=== PATIENT | male | born 1990 | race Caucasian/White ===

== ENCOUNTER 2017-12-19 18:14 | Emergency (ER) | payer OTHER ==
[2017-12-19 18:20] VITALS: BP 138/78; PULSE 79; RESP 18; TEMP 97.4
--- NOTE | 2017-12-19 18:59 | XR ---
EXAMINATION TYPE: XR forearm LT DATE OF EXAM: 12/19/2017 COMPARISON: NONE HISTORY: Pain TECHNIQUE: 2 view left forearm FINDINGS: No acute fractures are evident. Soft tissues are normal. Joint spaces appear unremarkable. IMPRESSION: 1. Normal 2 view left forearm.
--- NOTE | 2017-12-19 19:00 | XR ---
EXAMINATION TYPE: XR hand complete LT DATE OF EXAM: 12/19/2017 COMPARISON: NONE HISTORY: Pain worsening TECHNIQUE: Three-view left hand FINDINGS: No acute fractures are evident. Soft tissues are normal. Joint spaces are preserved. IMPRESSION: 1. Normal three-view left hand
--- NOTE | 2017-12-19 19:22 | ED ---
General Adult HPI - General Chief complaint: Extremity Injury, Upper Stated complaint: lt arm pain Time Seen by Provider: 12/19/17 18:30 Source: patient, RN notes reviewed Mode of arrival: ambulatory Limitations: no limitations - History of Present Illness Initial comments: 27-year-old male presents to the emergency department for a chief complaint of pain in the left hand. Patient states this has been going on for 5 weeks. Patient states he feels that along the metacarpal of the thumb as well as on the lateral aspect of the forearm. Patient states some days it is better and some days it is worse. Patient denies any pain anywhere else in the hand. Patient states he has not tried any [id number] medications for this. Patient has not followed up with primary care provider either. Patient denies any other symptoms at this time including shortness of breath or chest pain. - Related Data Home Medications Medication Instructions Recorded Confirmed Acetaminophen with Codeine 1 each PO Q4H 11/03/14 11/03/14 [Tylenol w/codeine #3] Amoxicillin 500 mg PO Q12HR 11/03/14 11/03/14 Previous Rx's Medication Instructions Recorded methylPREDNISolone Dose Pack 4 mg PO DIRECTED #21 package 12/19/17 [Medrol Dose Pack] Allergies Allergy/AdvReac Type Severity Reaction Status Date / Time No Known Allergies Allergy Verified 12/19/17 18:20 Review of Systems ROS Statement: Those systems with pertinent positive or pertinent negative responses have been documented in the HPI. ROS Other: All systems not noted in ROS Statement are negative. Past Medical History Past Medical History: No Reported History History of Any Multi-Drug Resistant Organisms: None Reported Past Surgical History: Appendectomy Additional Past Surgical History / Comment(s): wisdom teeth Past Psychological History: No Psychological Hx Reported Smoking Status: Current every day smoker Past Alcohol Use History: Rare Past Drug Use History: None Reported General Exam Limitations: no limitations Respiratory exam: Present: normal lung sounds bilaterally. Absent: respiratory distress, wheezes, rales, rhonchi, stridor Cardiovascular Exam: Present: regular rate, normal rhythm, normal heart sounds. Absent: systolic murmur, diastolic murmur, rubs, gallop, clicks Extremities exam: Present: other (Patient has tenderness to the distal lateral radius on the left. Patient also has tenderness in the thumb. Positive Quentin test. Otherwise patient has full range of motion. Capillary refill less than 2 seconds. Radial pulse 2+. Sensation is intact.) Course Vital Signs 12/19/17 18:18 Temperature 97.4 F L Pulse Rate 79 Respiratory 18 Rate Blood Pressure 138/78 O2 Sat by Pulse 100 Oximetry Medical Decision Making - Medical Decision Making 27-year-old male presents to the emergency room for a chief complaint of left thumb pain. Patient's complains of left thumb pain and left distal radius pain worsened with Quentin maneuver suggestive of tenosynovitis. X-rays of the left hand and forearm were negative. Patient will take Motrin and a steroid Dosepak. He will use warm compresses. He is to follow up with primary care provider in one to 2 days. He was also given the number of an orthopedic doctor that he can follow up with for this complaint. If symptoms worsen or he begins to lose feeling in his left hand he can return to the emergency department. Disposition Clinical Impression: Tenosynovitis Disposition: HOME SELF-CARE Condition: Good Instructions: De Quervain Disease (ED) Additional Instructions: Please return to the emergency department if symptoms worsen. Otherwise follow- up with orthopedics. Use warm compresses and Motrin for pain relief. Take Medrol Dosepak as directed. Prescriptions: methylPREDNISolone Dose Pack [Medrol Dose Pack] 4 mg PO DIRECTED #21 package Referrals: None,Stated [Primary Care Provider] - 1-2 days Aditya Barcenas DO [Doctor of Osteopathic Medicine] - 1-2 days Time of Disposition: 19:20
== END 2017-12-19 19:29 | disposition home or self-care (01) ==
LOC: EC 18:14
DX: M65.842 Other synovitis and tenosynovitis, left hand (principal); F17.200 Nicotine dependence, unspecified, uncomplicated; Z79.899 Other long term (current) drug therapy
CPT/HCPCS: 99283

== ENCOUNTER 2019-07-02 14:09 | Inpatient (IN) | payer MEDICAID, OTHER ==
[2019-07-02 14:23] VITALS: RESP 16; TEMP 97
--- NOTE | 2019-07-02 14:56 | ED ---
General Adult HPI - General Chief complaint: Psychiatric Symptoms Stated complaint: Mental Health Time Seen by Provider: 07/02/19 14:15 Source: police, RN notes reviewed Limitations: no limitations - History of Present Illness Initial comments: This is a 28-year-old male who presents emergency Department with the police. Police were called to the house because the patient was holding a gun to his head and telling his father he was going to kill himself. Patient denies this to me currently but the father and mother both told the [place] police officer this occurred. Father wrestled the patient to the ground and took away the gun. Patient states his girlfriend just broke up with him and took his kids and so is super depressed today and upset. Patient states she was not suicidal and he has never made any other suicidal attempts in the past and he states he has no psychiatric history. Patient states he has no physical complaints today at all. - Related Data Home Medications Medication Instructions Recorded Confirmed No Known Home Medications 07/02/19 07/02/19 Allergies Allergy/AdvReac Type Severity Reaction Status Date / Time No Known Allergies Allergy Verified 07/02/19 14:55 Review of Systems ROS Statement: Those systems with pertinent positive or pertinent negative responses have been documented in the HPI. ROS Other: All systems not noted in ROS Statement are negative. Past Medical History Past Medical History: No Reported History History of Any Multi-Drug Resistant Organisms: None Reported Past Surgical History: Appendectomy Additional Past Surgical History / Comment(s): wisdom teeth Past Psychological History: No Psychological Hx Reported Smoking Status: Current every day smoker Past Alcohol Use History: Rare Past Drug Use History: None Reported General Exam - General Exam Comments Initial Comments: GENERAL: Patient is well-developed and well-nourished. Patient is nontoxic and well- hydrated and is in no acute distress. ENT: Neck is soft and supple. No significant lymphadenopathy is noted. Oropharynx is clear. Moist mucous membranes. Neck has full range of motion without eliciting any pain. EYES: The sclera were anicteric and conjunctiva were pink and moist. Extraocular movements were intact and pupils were equal round and reactive to light. Eyelids were unremarkable. PULMONARY: Unlabored respirations. Good breath sounds bilaterally. No audible rales rhonchi or wheezing was noted. CARDIOVASCULAR: There is a regular rate and rhythm without any murmurs gallops or rubs. ABDOMEN: Soft and nontender with normal bowel sounds. No palpable organomegaly was noted. There is no palpable pulsatile mass. SKIN: Skin is clear with no lesions or rashes and otherwise unremarkable. NEUROLOGIC: Patient is alert and oriented x3. Cranial nerves II through XII are grossly intact. Motor and sensory are also intact. Normal speech, volume and content. Symmetrical smile. MUSCULOSKELETAL: Normal extremities with adequate strength and full range of motion. No lower extremity swelling or edema. No calf tenderness. LYMPHATICS: No significant lymphadenopathy is noted PSYCHIATRIC: Patient is very angry and denying suicide at this time. Limitations: no limitations Course Vital Signs 07/02/19 14:14 Temperature 97 F L Pulse Rate 80 Respiratory 16 Rate Blood Pressure 141/71 O2 Sat by Pulse 100 Oximetry Medical Decision Making - Medical Decision Making I filled out a clinical certification on this patient for admission. Disposition Clinical Impression: Suicidal ideation Disposition: ADMITTED IP TO THIS HOSP Referrals: None,Stated [Primary Care Provider] - 1-2 days Time of Disposition: 16:21
[2019-07-02] MEDS ORDERED: HALOPERIDOL LACTATE 5 MG/ML 1 ML VIAL IM STA (16:18)
[2019-07-02] MEDS ORDERED: NICOTINE 21MG/24HR PATCH TRANSDERM STA (16:28)
[2019-07-02] MEDS ORDERED: LORazepam 2 MG/ML INJ IM STA (16:35)
[2019-07-02] MEDS: LORazepam 2 MG/ML INJ IM STA ×2 (16:49→19:25)
--- NOTE | 2019-07-02 16:59 | ED ---
Disposition Clinical Impression: Suicidal ideation Disposition: ADMITTED IP TO THIS [facility] Referrals: None,Stated [Primary Care Provider] - 1-2 days Procedures - Restraint - Face to Face Restraint Occurrence 1 Patient's Immediate Situation: Endangers others' safety, Endangers staff safety, Violent behavior Patient's Reaction to the Intervention: Uncooperative, Angry, Hostile, Wayne gerent, Bizarre, Aggressive, Combative Patient's Medical & Behavioral Condition: Awake, Alert, Agitated, Manic, Flight of ideas, Bizarre behavior Need to Continue or Terminate Restraint or Seclusion: Continue Face to Face Eval of Restraint Date: 07/02/19 Face to Face Eval of Restraint Time: 16:58
[2019-07-02 18:39] VITALS: BP 84/52; PULSE 65
[2019-07-02] MEDS ORDERED: MAGNESIUM HYDROXIDE 2,400 MG/10 ML CUP PO PRN (19:37)
[2019-07-02] MEDS ORDERED: ACETAMINOPHEN TAB 325 MG TAB PO PRN (19:37)
[2019-07-02] MEDS ORDERED: MAG HYDROX/AL HYDROX/SIMETH 30 ML CUP PO PRN (19:37)
[2019-07-02] MEDS ORDERED: HALOPERIDOL LACTATE 5 MG/ML 1 ML VIAL IM PRN (19:49)
[2019-07-02] MEDS ORDERED: LORazepam 2 MG/ML INJ IV PRN (19:50)
[2019-07-03] MEDS: NICOTINE 21MG/24HR PATCH TRANSDERM SCH (09:51)
[2019-07-03] MEDS ORDERED: LORazepam 2 MG/ML INJ IM PRN (09:55)
[2019-07-03 10:27] LABS: Basophils % (A) 0 %; Eosinophils % (A) 0 %; HCT 49.1 % (39.0-53.0); HGB 15.6 gm/dL (13.0-17.5); Lymphocytes # (A) 1.2 k/uL (1.0-4.8); Lymphocytes % (A) 11 %; MCH 30.6 pg (25.0-35.0); MCHC 31.8 g/dL (31.0-37.0); MCV 96.3 fL (80.0-100.0); Mean Platelet Volume 6.2; Monocytes # (A) 0.4 k/uL (0-1.0); Monocytes % (A) 4 %; Neutrophils # (A) 9.4 k/uL (1.3-7.7); Neutrophils % (A) 84 %; Platelet Count 228 k/uL (150-450); WBC 11.1 k/uL (3.8-10.6)
[2019-07-03 10:35] LABS: ALT 23 U/L (21-72); AST 27 U/L (17-59); African American GFR (CKD) >90 (>60 ml/min/1.73 sqM); Albumin 4.8 g/dL (3.5-5.0); Alkaline Phosphatase 59 U/L (38-126); Anion Gap 10 mmol/L; Blood Urea Nitrogen 16 mg/dL (9-20); Calcium 9.6 mg/dL (8.4-10.2); Carbon Dioxide 28 mmol/L (22-30); Chloride 104 mmol/L (98-107); Cholesterol 171 mg/dL (<200); Glucose 83 mg/dL (74-99); HDL Cholesterol 51 mg/dL (40-60); LDL Cholesterol,Calculated 108 mg/dL (0-99); Potassium 4.6 mmol/L (3.5-5.1); Sodium 142 mmol/L (137-145); Total Bilirubin 2.8 mg/dL (0.2-1.3); Total Protein 8.2 g/dL (6.3-8.2); Triglycerides 58 mg/dL (<150)
--- NOTE | 2019-07-03 11:22 | P.CONS ---
History of Present Illness - Reason for Consult Consult date: 07/03/19 - History of Present Illness The patient is a 28 yo M with no known PMH who presented to the ED under police custody for suicidal ideation. As per the documentation, the patient had recently broken up with his girlfriend who had also taken away his kids, and the patient was at his parent's home with a gun to his head, threatening to kill himself. Patient was subsequently petitioned and admitted to the psych unit. The patient was seen in the mental health unit. The patient states that he should not be in the mental health unit and that was all a schema by his family members. He however denied any active complaints. He reports that he does not take any [id number] medications. Denied chest pain, shortness breath, nausea, vomiting, fever, chills, abdominal pain, or diarrhea. The patient underwent an extensive evaluation in the emergency room with WBC count 11.1, hemoglobin 15.6, platelets are 28, sodium 142, potassium 4.6, chloride 104, BUN 16, and creatinine 0.95. TSH was low at 0.252. Review of Systems Pertinent positives and negatives as discussed in HPI, a complete review of systems was performed and all other systems are negative. Past Medical History Past Medical History: No Reported History History of Any Multi-Drug Resistant Organisms: None Reported Past Surgical History: Appendectomy Additional Past Surgical History / Comment(s): wisdom teeth Past Psychological History: No Psychological Hx Reported Smoking Status: Current every day smoker Past Alcohol Use History: Rare Past Drug Use History: None Reported Medications and Allergies Home Medications Medication Instructions Recorded Confirmed Type No Known Home Medications 07/02/19 07/02/19 History Allergies Allergy/AdvReac Type Severity Reaction Status Date / Time No Known Allergies Allergy Verified 07/02/19 14:55 Physical Exam Vitals: Vital Signs Temp Pulse Pulse Resp BP BP Pulse Ox 07/02/19 18:38 65 16 84/52 07/02/19 18:30 18 07/02/19 16:45 17 07/02/19 14:14 97 F L 80 16 141/71 100 General: non toxic, no distress, appears at stated age, normal weight Derm: no unusual rashes/lesions no unusual ecchymoses, warm, dry Head: atraumatic, normocephalic, symmetric Eyes: EOMI, no lid lag, anicteric sclera, pupils equal round reactive to light ENT: Nose and ears atraumatic, no thrush, no pharyngeal erythema Neck: No thyromegaly, no cervical lymphadenopathy, trachea midline, supple Mouth: no lip lesion, mucus membranes moist Cardiovascular: S1S2 reg, no murmur, positive posterior tibial pulse bilateral, no edema, capillary refill less than 2 seconds Lungs: CTA bilateral, no rhonchi, no rales , no accessory muscle use Abdominal: soft, nontender to palpation, no guarding, no appreciable organ omegaly, normal bowel sounds Ext: no gross muscle atrophy, muscle strength 5 out of 5 in all 4 extremities grossly, no contractures, Neuro: CN II-XI grossly intact, light touch intact all 4 extremities, finger to nose within normal limits, Psych: Alert, oriented, flat affect Results CBC & Chem 7: 07/03/19 10:03 07/03/19 10:03 Labs: Abnormal Lab Results - Last 24 Hours (Table) 07/03/19 07/03/19 Range/Units 10:03 10:03 WBC 11.1 H (3.8-10.6) k/uL Neutrophils # 9.4 H (1.3-7.7) k/uL Total Bilirubin 2.8 H (0.2-1.3) mg/dL LDL Cholesterol, Calc 108 H (0-99) mg/dL TSH 0.252 L (0.465-4.680) mIU/L Assessment and Plan Plan: Low TSH -Obtain free T4 and T3 Tobacco abuse -Patient smokes approximately one pack per day -Advised on importance of cessation -Nicotine patch as needed Leukocytosis -No signs of active infection at this time -Likely reactive secondary stress -Monitor for now -CBC in a.m. Elevated total bilirubin -Patient reports drinking rarely -Obtain liver ultrasound -Monitor for now Suicidal ideation -As per psychiatry Thank you for allowing us to participate in the care of this patient. We will follow peripherally. Do not hesitate to contact us with questions. Someone can be reached from the [facility] hospitalist group at all hours of the day at [phone].
--- NOTE | 2019-07-03 14:18 | P.HP ---
Psychiatric H&P - . H&P Date: 07/03/19 History & Physical: IDENTIFYING INFORMATION: Paulie Vance is a 28-year-old single male, has a job in [employer], denies any history of psychiatric illness, and he denies any history of medical problems. The patient has been admitted to our inpatient psychiatric services after been transferred from [facility] emergency room. Patient was initially EMS and the police after his father petitioned him as per report the patient tried to kill himself. The patient has been admitted on involuntarily basis to our service. CHIEF COMPLAINT: "I didn't try to kill myself." HISTORY OF PRESENT ILLNESS: As per emergency room report, the patient presented to ER under police custody because of suicidal ideation. Reportedly, the patient recently broke up with his girlfriend who had also taken away his kids, and the patient was at his parent's home was a gun to his head threatening to kill himself. Patient was subsequently petitioned and admitted to the psychiatric unit. As per petition papers by a mounted police, the patient admitted to getting at his gun and admitted suicidal thoughts initially but later denied it. Paulie's father called 911 reported that Paulie has grabbed pistol, held it up to his head and his stated" I am going to end it all." Based on psychiatric evaluation today, the patient presents very superficial w ith very evasive answers about the incidence of holding the gun to his head. Patient minimizes the incident and reports that he was just transferring his guns out of the safe because a safe was very heavy and he tried to get the guns out of the safe because he was moving out so his parents thought that was going to kill himself. Even the patient mentioned he broke up with his girlfriend, and she doesn't allow him to see the children, however; he didn't explain the nature of the conflict with his girlfriend and he was accusing his parent's being liars and using drugs. He couldn't explain why his parent's would report that he tried to kill himself and was putting the gun to his head and again he was superficial and he denies this incident of holding the gun against his head and threatening suicide. Patient denies feeling hopeless, worthless, or suicidal. He was very frustrated about being hospitalized, and requested to go back to his work. Patient denies any current suicidal or homicidal thoughts. He denies feeling guilty, lack of motivation, or poor energy level. He denies sleep or appetite disturbances. Patient denies symptoms of anxiety including racing thoughts, always worried, always feeling tense and not easy to relax. He denies any panic attacks, and he denies PTSD symptoms including nightmares or flashbacks. Patient denies any current or previous manic episodes including symptoms of a euphoric/irritable mood, unusual level of energy, lack need to sleep due to increased activities, and irrational/impulsive behavior. He denies any current or previous auditory or visual hallucinations. He denies any paranoid ideation and no delusions could be elicited. He denies any current or previous history of self-injurious behavior, severe mood swings, outbursts of severe anger or agitation. PAST PSYCHIATRIC HISTORY: Previous diagnoses: Reports was diagnosed with depression 10 years ago after of his friend and he received some talk therapy which helped him. Previous psychiatric hospitalizations: Denies any previous psychiatric hospitalizations. Previous suicide attempts: As any previous suicidal attempts. Denies any current psychiatric medications, and he denies any previous trials of psychotropic medications. SUBSTANCE ABUSE HISTORY: Nicotine: 1 pack per day for more than 15 years. Alcohol: Denies drinking alcohol Cannabis: Reports smoking marijuana very infrequent. Denies any use of street drugs including cocaine, heroin, or methamphetamine. Denies any history of IV drug use. Denies any history of substance use disorder treatment. Social History: Patient was born in [facility] and raised up by both parents who have been since he was a child and they still . Housing: Patient was most recently living with his girlfriend who broke up with him 1 week ago. Reportedly, the patient was at his parent's house when he threatened to kill himself Work history: Patient reports working in [employer]. Education: Patient reports attaining an educational level of high school diploma and some college credits. Children: Patient reports having 2 children who are children for his girlfriend but he is very connected with them Legal history: Reports history of being arrested and he stayed in retirement due to fighting while he was at high school. History of psychological trauma: Denies any history of psychological trauma FAMILY HISTORY: Psychiatric Illness: Denies any family history of mental illness. Substance abuse: Denies any family history of addiction problems. Completed Suicides: Denies any family history of suicide. MENTAL STATUS EVALUATION: Appearance: Appears stated age, poorly groomed, average body built, and no specific features. Gait/ posture: Steady gait, normal arm swinging, no abnormal movements, with relaxed posture. Attitude and Behavior: Very superficial, evasive answers, intermittent eye contact during course of interview. Motor Activity: Increased psychomotor activity. Speech: spontaneous, normal rate, rhythm, and articulation. Average volume. Not pressured. Language: Articulating, naming objects and repeat phrases. Mood: Irritable, frustrated Affect: Constricted. Thought process: Linear, goal-directed. Association: Intact. Thought content: No delusions, denies suicidal thoughts, denies homicidal thoughts, denies intentions, or plans. Perception: And eyes any auditory or visual hallucinations. Alertness: No impairment. Concentration: Impaired Orientation: Alert and fully oriented to person, place, time and situation Insight regarding psychiatric condition: Limited Judgment regarding daily activities and social situation: Limited Impulse control: Limited Strengths: Stable general medical condition Employment Challenges: Poor coping skills. Limited social support. Allergies Allergy/AdvReac Type Severity Reaction Status Date / Time No Known Allergies Allergy Verified 07/02/19 14:55 Vital Signs Temp 97 F L 07/02/19 14:14 Pulse 65 07/02/19 18:38 Resp 16 07/02/19 18:38 BP 84/52 07/02/19 18:38 Pulse Ox 100 07/02/19 14:14 Intake & Output 07/02/19 07/03/19 07/03/19 18:59 06:59 18:59 Weight 81.647 kg Laboratory Last Values Review of Lab results: WBC 11.1 k/uL (3.8-10.6) H 07/03/19 10:03 RBC 5.10 m/uL (4.30-5.90) 07/03/19 10:03 Hgb 15.6 gm/dL (13.0-17.5) 07/03/19 10:03 Hct 49.1 % (39.0-53.0) 07/03/19 10:03 MCV 96.3 fL (80.0-100.0) 07/03/19 10:03 MCH 30.6 pg (25.0-35.0) 07/03/19 10:03 MCHC 31.8 g/dL (31.0-37.0) 07/03/19 10:03 RDW 13.0 % (11.5-15.5) 07/03/19 10:03 Plt Count 228 k/uL (150-450) 07/03/19 10:03 Neutrophils % 84 % 07/03/19 10:03 Lymphocytes % 11 % 07/03/19 10:03 Monocytes % 4 % 07/03/19 10:03 Eosinophils % 0 % 07/03/19 10:03 Basophils % 0 % 07/03/19 10:03 Neutrophils # 9.4 k/uL (1.3-7.7) H 07/03/19 10:03 Lymphocytes # 1.2 k/uL (1.0-4.8) 07/03/19 10:03 Monocytes # 0.4 k/uL (0-1.0) 07/03/19 10:03 Eosinophils # 0.0 k/uL (0-0.7) 07/03/19 10:03 Basophils # 0.0 k/uL (0-0.2) 07/03/19 10:03 Sodium 142 mmol/L (137-145) 07/03/19 10:03 Potassium 4.6 mmol/L (3.5-5.1) 07/03/19 10:03 Chloride 104 mmol/L (98-107) 07/03/19 10:03 Carbon Dioxide 28 mmol/L (22-30) 07/03/19 10:03 Anion Gap 10 mmol/L 07/03/19 10:03 BUN 16 mg/dL (9-20) 07/03/19 10:03 Creatinine 0.95 mg/dL (0.66-1.25) 07/03/19 10:03 Est GFR (CKD-EPI)AfAm >90 (>60 ml/min/1.73 sqM) 07/03/19 10:03 Est GFR (CKD-EPI)NonAf >90 (>60 ml/min/1.73 sqM) 07/03/19 10:03 Glucose 83 mg/dL (74-99) 07/03/19 10:03 Calcium 9.6 mg/dL (8.4-10.2) 07/03/19 10:03 Total Bilirubin 2.8 mg/dL (0.2-1.3) H 07/03/19 10:03 AST 27 U/L (17-59) 07/03/19 10:03 ALT 23 U/L (21-72) 07/03/19 10:03 Alkaline Phosphatase 59 U/L (38-126) 07/03/19 10:03 Total Protein 8.2 g/dL (6.3-8.2) 07/03/19 10:03 Albumin 4.8 g/dL (3.5-5.0) 07/03/19 10:03 Triglycerides 58 mg/dL (<150) 07/03/19 10:03 Cholesterol 171 mg/dL (<200) 07/03/19 10:03 LDL Cholesterol, Calc 108 mg/dL (0-99) H 07/03/19 10:03 HDL Cholesterol 51 mg/dL (40-60) 07/03/19 10:03 TSH 0.252 mIU/L (0.465-4.680) L 07/03/19 10:03 Assessment: Unspecified mood disorder Rule out major depressive disorder, single episode, without psychotic features. TREATMENT PLAN/RECOMMENDATIONS: Medical Decision making: The patient presented to the ER with police custody after he was petitioned because he was threatening to kill himself and putting a gun to his head. The patient at high risk to hurt himself if he is not in the inpatient setting. The patients psychiatric symptoms are not stable and he needs further management of psychiatric medications and further planning for discharge. Therefore, inpatient level of care is needed. Continue the patient inpatient for safety. Continue the patient under 15 minutes safe check for safety. Continue treatment of depression and mood instability symptoms. Psych education regarding his diagnosis, and treatment option. The patient will also be provided with individual therapy, group therapy, substance abuse counseling, gain insight, and coping skills. Consider medical consultation if any acute medical issue arise. Medications: Not on this time. Patient was superficial in discussing his incident of try to kill himself and didn't report any current symptoms of depression or other psychiatric illness. We will continue monitor the patient's symptoms and obtain collateral information from the patient's parents after his consent. Prognosis is fair, contingent on patient has been compliant with his treatment and has been followed up closely with outpatient mental health provider after discharge. The patient will be assessed on daily basis for his depression, suicidal ideation, and will be discharged back to his outpatient mental health provider upon stabilization. EXPECTED LENGTH OF STAY: 2- 3 days. 07/03/19 13:51
--- NOTE | 2019-07-04 09:02 | US ---
EXAMINATION TYPE: US liver DATE OF EXAM: 07/04/2019 COMPARISON: NONE CLINICAL HISTORY: Elevated T Bili. mental health patient with no symptoms EXAM MEASUREMENTS: Liver Length: 16.1 cm Gallbladder Wall: 0.2 cm CBD: 0.5 cm Right Kidney: 10.4 x 4.7 x 4.2 cm Pancreas: wnl Liver: wnl Gallbladder: wnl Evidence for sonographic Henderson's sign: no CBD: wnl Right Kidney: wnl IMPRESSION: Hepatic echotexture remains homogeneous. No sonographic evidence of cholelithiasis nor acute cholecys titis. If there is further concern for elevated bilirubin levels MRCP with and without contrast could evaluate the bile ducts for cholangitis or nonradiopaque choledocholithiasis.
[2019-07-04] MEDS: NICOTINE 21MG/24HR PATCH TRANSDERM SCH ×2 (09:06→09:09)
[2019-07-04 09:42] LABS: HCT 44.6 % (39.0-53.0); HGB 14.7 gm/dL (13.0-17.5); MCHC 32.9 g/dL (31.0-37.0); MCV 94.4 fL (80.0-100.0); Mean Platelet Volume 5.7; Platelet Count 222 k/uL (150-450); RBC 4.73 m/uL (4.30-5.90); RDW 12.7 % (11.5-15.5); WBC 7.4 k/uL (3.8-10.6)
[2019-07-04 09:51] LABS: Total Bilirubin 1.8 mg/dL (0.2-1.3)
[2019-07-04 10:01] LABS: T4, Free (Free Thyroxine) 1.04 ng/dL (0.78-2.19)
--- NOTE | 2019-07-04 14:11 | P.PN ---
Progress Note - Text Progress Note Date: 07/04/19 Chief complaint: "I am not suicidal, and I never was suicidal " Subjective: The patient has been seen today as follow-up, chart reviewed, case discussed with the treatment team. Patient slept about 8 hours last night. Patient has been going to selected groups and other unit activities. Patient reports good appetite. She reports feeling stable emotionally, and he denies feeling depressed, hopeless, or suicidal. Patient continued to reported that his parents misunderstood him when he tried to move the guns from the safe and the thought that he is going to kill himself but he never had any thoughts, intention, or plan to hurt himself. Patient was talking about going back to his girlfriend and she is happy that he could get back to her house and stay with the kids. He reports plan to go back to work and will continue outpatient counseling as needed. The patient denies any manic symptoms including sustained period of time with elevated or irritable mood, impulsive or irrational behavior, inflated self- esteem, or absence need to sleep due to increases goal-directed activities. The patient denies any auditory or visual hallucinations. Also the patient denies any paranoid ideation. Review of other systems: Patient denies any physical symptoms besides what has been mentioned above. No breathing problems, no chest pain reported today. Mental status examination; Appearance: The patient appears stated age, adequately groomed and dressed, no specific features. Gait/posture: Normal gait, Normal arm swinging: No abnormal movements. Attitude and behavior: engaged, cooperative, eye contact. Motor activity: Normal psychomotor activity Speech: Normal rate, tone. Mood: "Good" Affect: Constricted Thought form: goal-directed, linear, coherent. Thought content: Non-delusional, denies suicidal thoughts, denies homicidal thoughts, denies intentions or plans. Perception: Denies any auditory or visual hallucinations Attention: No impairment. Patient was able to repeat serial 5. Orientation: Patient patient was fully oriented to time place person and sit uation. Insight: Patient has fair insight about his psychiatric disorder. Judgment: Patient has fair judgment about his psychiatric treatment. Assessment: Unspecified mood disorder. Rule out major depressive disorder, single episode, moderate without psychotic features Plan: Continue inpatient level of care due to mood instability and arrange for safe discharge plan Obtain collateral information from patient's parents about the reported incident and requests to secure the guns or any other lethal weapons. provide psychiatric education regarding his diagnosis Precautions: Continue 15 minutes check for safety. Consider medical consultation if any acute medical issues arise. Provide the patient individual, group therapy, substance use disorder counseling to give better insight and learn coping skills. Continue follow-up with the patient daily to monitor progress of mood symptoms. Medications: None at this time. Patient refused start any medications, and he denies any symptoms of depression. Discharge patient to OUTPATIENT services upon a stabilization Prognosis: Improving Expected LOS: 1-2 days
[2019-07-05] MEDS: NICOTINE 21MG/24HR PATCH TRANSDERM SCH ×2 (08:41→08:52)
--- NOTE | 2019-07-05 12:29 | P.DS ---
Providers Date of admission: 07/02/19 18:03 Expected date of discharge: 07/05/19 Attending physician: Giovanni Carcamo MD Consults: 07/02/19 19:37 Consult Physician Routine Consulting Provider: Ian Boss Consult Reason/Comments: H&P for mental health admission Do you want consulting provider notified?: Yes Primary care physician: Stated None Hospital Course: Brief HPI: As per the HPI from initial psychiatric evaluation during this hospital stay: "Paulie Vance is a 28-year-old single male, has a job in [employer], denies any history of psychiatric illness, and he denies any history of medical problems. The patient has been admitted to our inpatient psychiatric services after been transferred from [facility] emergency room. Patient was initially EMS and the police after his father petitioned him as per report the patient tried to kill himself. The patient has been admitted on involuntarily basis to our service. As per emergency room report, the patient presented to ER under police custody because of suicidal ideation. Reportedly, the patient recently broke up with his girlfriend who had also taken away his kids, and the patient was at his parent's home was a gun to his head threatening to kill himself. Patient was subsequently petitioned and admitted to the psychiatric unit. As per petition papers by a sergeant of officers, the patient admitted to getting at his gun and admitted suicidal thoughts initially but later denied it. Paulie's father called 911 reported that Paulie has grabbed pistol, held it up to his head and his stated" I am going to end it all." Based on psychiatric evaluation today, the patient presents very superficial with very evasive answers about the incidence of holding the gun to his head. Patient minimizes the incident and reports that he was just transferring his guns out of the safe because a safe was very heavy and he tried to get the guns out of the safe because he was moving out so his parents thought that was going to kill himself. Even the patient mentioned he broke up with his girlfriend, and she doesn't allow him to see the children, however; he didn't explain the nature of the conflict with his girlfriend and he was accusing his parent's being liars and using drugs. He couldn't explain why his parent's would report that he tried to kill himself and was putting the gun to his head and again he was superficial and he denies this incident of holding the gun against his head and threatening suicide. Patient denies feeling hopeless, worthless, or suicidal. He was very frustrated about being hospitalized, and requested to go back to his work. Patient denies any current suicidal or homicidal thoughts. He denies feeling guilty, lack of motivation, or poor energy level. He denies sleep or appetite disturbances. Patient denies symptoms of anxiety including racing thoughts, always worried, always feeling tense and not easy to relax. He denies any panic attacks, and he denies PTSD symptoms including nightmares or flashbacks. Patient denies any current or previous manic episodes including symptoms of a euphoric/irritable mood, unusual level of energy, lack need to sleep due to increased activities, and irrational/impulsive behavior. He denies any current or previous auditory or visual hallucinations. He denies any paranoid ideation and no delusions could be elicited. He denies any current or previous history of self-injurious behavior, severe mood swings, outbursts of severe anger or agitation. " Hospital Course: Psychiatric: The patient was not initiated on psychotropic medication as he denies any current symptoms of depression and chooses not to start on any psychiatric medications. Patient is willing to continue therapy and counseling after discharge. The patient was admitted for a safe and supportive environment. A psychiatric, medical, and psychosocial evaluations were done on admission. The patient's hospital stay is unremarkable. Patient did not exhibit any aggression towards himself or others during his hospitalization, and there was no requirements for emergency medications or restraints. The patient attended some groups to obtain coping skills and process stress. Patient got along with his peers and with staff. The objective signs of depression and suicidal ideation not observed and multiple reported by the patient during his hospital stay. Patient denies any suicidal ideation, not made any hopelessness/helplessness statements for more than 3 days prior to discharge. Maximum hospitalization benefit was reached and subsequently discharge was planned, and patient is appropriate to continue treatment on an outpatient basis. On the day of discharge the patient was able to create an appropriate safety plan and denies any side effect of medications. At the day of discharge studio set up worker attended family meeting with patient's family, discussed discharge planning, and educated the family about securing guns at home. Family reported guns are secured. Medical: Patient was educated about smoking cessation and a prescription for nicotine replacement therapy was given at time of discharge. Assessment: Assessment at the day of discharge: The patient was seen at the day of discharge. Patient denies any sleep or appetite disturbances, denies feeling hopeless, worthless or helpless. Also, patient denies any other depressive or manic symptoms. Patient denies any psychotic symptoms. Patient denies suicidal or homicidal thoughts, intention or plans. Nurses and therapist reported patient is psychiatrically stable, and agreed to discharge plan. Mental status examination on discharge: Appearance: The patient appears stated age, adequately groomed and dressed, no specific features. Gait/posture: Normal gait, Normal arm swinging: No abnormal movements. Attitude and behavior: engaged, cooperative, eye contact. Motor activity: Normal psychomotor activity Speech: Normal rate, tone. Mood:" Good" Affect: Reactive, congruent with mood. Thought form: goal-directed, linear, coherent. Thought content: Non-delusional, denies suicidal thoughts, denies homicidal tho ughts, denies intentions or plans. Perception: Denies any auditory or visual hallucinations Attention: No impairment. Patient was able to repeat serial 5. Orientation: Patient patient was fully oriented to time place person and situation. Insight: Patient has fair insight about his psychiatric disorder. Judgment: Patient has fair judgment about his psychiatric treatment. Health Concerns: Activity: As tolerated Diet: Regular Special Instructions: Labs to be completed after discharge: As clinically indicated by his outpatient psychiatrist and PCP. Discharge checklist for suicide and violence to determine stability: Safety plan was discussed with the patient. Patient denies any current suicidal/ homicidal or violent ideation/plan/ intent. Patient has ability to address stress/emotions. Patient understands and is comfortable with discharge plan. [facility] Emergency number (911, crisis number) provided to the patient. Actions taken to make sure no weapons at home and to remove weapons if any at home. Avoid the use of street drugs and alcohol. Take all medications as prescribed. Please go to scheduled outpatient appointment for aftercare. If symptoms return or become worse call the crisis line at and/or go to the nearest emergency room for an evaluation. Pertinent Studies: Laboratory Tests Range/Units 07/03/19 07/03/19 07/03/19 10:03 10:03 10:03 WBC (3.8-10.6) k/uL 11.1 H RBC (4.30-5.90) m/uL 5.10 Hgb (13.0-17.5) gm/dL 15.6 Hct (39.0-53.0) % 49.1 MCV (80.0-100.0) fL 96.3 MCH (25.0-35.0) pg 30.6 MCHC (31.0-37.0) g/dL 31.8 RDW (11.5-15.5) % 13.0 Plt Count (150-450) k/uL 228 Neutrophils % % 84 Lymphocytes % % 11 Monocytes % % 4 Eosinophils % % 0 Basophils % % 0 Neutrophils # (1.3-7.7) k/uL 9.4 H Lymphocytes # (1.0-4.8) k/uL 1.2 Monocytes # (0-1.0) k/uL 0.4 Eosinophils # (0-0.7) k/uL 0.0 Basophils # (0-0.2) k/uL 0.0 Sodium (137-145) mmol/L 142 Potassium (3.5-5.1) mmol/L 4.6 Chloride (98-107) mmol/L 104 Carbon Dioxide (22-30) mmol/L 28 Anion Gap mmol/L 10 BUN (9-20) mg/dL 16 Creatinine (0.66-1.25) mg/dL 0.95 Est GFR (CKD-EPI)AfAm (>60 ml/min/1.73 sqM) >90 Est GFR (CKD-EPI)NonAf (>60 ml/min/1.73 sqM) >90 Glucose (74-99) mg/dL [address] Glu mg/dL 97 Hemoglobin A1c (4.0-6.0) % 5.0 Calcium (8.4-10.2) mg/dL 9.6 Total Bilirubin (0.2-1.3) mg/dL 2.8 H AST (17-59) U/L 27 ALT (21-72) U/L 23 Alkaline Phosphatase (38-126) U/L 59 Total Protein (6.3-8.2) g/dL 8.2 Albumin (3.5-5.0) g/dL 4.8 Triglycerides (<150) mg/dL 58 Cholesterol (<200) mg/dL 171 LDL Cholesterol, Calc (0-99) mg/dL 108 H HDL Cholesterol (40-60) mg/dL 51 TSH (0.465-4.680) mIU/L 0.252 L Free T4 (0.78-2.19) ng/dL Free T3 pg/mL (2.8-5.3) pg/ml Range/Units 07/04/19 07/04/19 09:05 09:05 WBC (3.8-10.6) k/uL 7.4 RBC (4.30-5.90) m/uL 4.73 Hgb (13.0-17.5) gm/dL 14.7 Hct (39.0-53.0) % 44.6 MCV (80.0-100.0) fL 94.4 MCH (25.0-35.0) pg 31.0 MCHC (31.0-37.0) g/dL 32.9 RDW (11.5-15.5) % 12.7 Plt Count (150-450) k/uL 222 Neutrophils % % Lymphocytes % % Monocytes % % Eosinophils % % Basophils % % Neutrophils # (1.3-7.7) k/uL Lymphocytes # (1.0-4.8) k/uL Monocytes # (0-1.0) k/uL Eosinophils # (0-0.7) k/uL Basophils # (0-0.2) k/uL Sodium (137-145) mmol/L Potassium (3.5-5.1) mmol/L Chloride (98-107) mmol/L Carbon Dioxide (22-30) mmol/L Anion Gap mmol/L BUN (9-20) mg/dL Creatinine (0.66-1.25) mg/dL Est GFR (CKD-EPI)AfAm (>60 ml/min/1.73 sqM) Est GFR (CKD-EPI)NonAf (>60 ml/min/1.73 sqM) Glucose (74-99) mg/dL Estimated Ave Glu mg/dL Hemoglobin A1c (4.0-6.0) % Calcium (8.4-10.2) mg/dL Total Bilirubin (0.2-1.3) mg/dL 1.8 H AST (17-59) U/L ALT (21-72) U/L Alkaline Phosphatase (38-126) U/L Total Protein (6.3-8.2) g/dL Albumin (3.5-5.0) g/dL Triglycerides (<150) mg/dL Cholesterol (<200) mg/dL LDL Cholesterol, Calc (0-99) mg/dL HDL Cholesterol (40-60) mg/dL TSH (0.465-4.680) mIU/L Free T4 (0.78-2.19) ng/dL 1.04 Free T3 pg/mL (2.8-5.3) pg/ml 2.9 Procedures: Discharge diagnoses: Unspecified mood disorder Plan: Patient will continue follow-up at-. As per discharge plan Patient Condition at Discharge: Stable Patient will be discharge to parent's house Plan - Discharge Summary New Discharge Prescriptions: New Nicotine 21Mg/24Hr Patch [Habitrol] 1 patch TRANSDERM DAILY #30 patch Discharge Medication List Nicotine 21Mg/24Hr Patch [Habitrol] 1 patch TRANSDERM DAILY #30 patch 07/05/19 [Rx] Follow up Appointment(s)/Referral(s): None,Stated [Primary Care Provider] - 1-2 days [facility] [NON-STAFF] - As Needed Patient Instructions/Handouts: Depression (DC), Suicide Prevention (DC) Activity/Diet/Wound Care/Special Instructions: Activity and diet as tolerated. No guns or weapons in the home. No alcohol or street drugs not prescribed by physician. Take all medications as prescribed, and attend all follow up appointments as scheduled. If in need of medication refills, please go to your outpatient psychiatric provider, or to your primary care physician. If in crisis, please call , or go to the nearest ER for an evaluation. Labs to be completed after discharge: As clinically indicated by his outpatient psychiatrist and PCP. Discharge checklist for suicide and violence to determine stability: Safety plan was discussed with the patient. Patient denies any current suicidal/ homicidal or violent ideation/plan/ intent. Patient has ability to address stress/emotions. Patient understands and is comfortable with discharge plan. Outpatient appointments is near [facility] Emergency number (911, crisis number) provided to the patient. Actions taken to make sure no weapons at home and to remove weapons if any at home Discharge Disposition: HOME SELF-CARE
== END 2019-07-05 15:06 | disposition home or self-care (01) | DRG 885 ==
LOC: EC 14:09 → 3MHU 18:03
PROVIDERS: ADMIT Psychiatry & Neurology Psychiatry; ATTEND Psychiatry & Neurology Psychiatry
DX: F39 Unspecified mood [affective] disorder (principal); R45.851 Suicidal ideations; F17.200 Nicotine dependence, unspecified, uncomplicated; D72.829 Elevated white blood cell count, unspecified
CPT/HCPCS: 76705; 80053; 80061; 82075; 82247; 83036; 84439; 84443; 84481; 85025; 85027; 96372; 99285